=== PATIENT | female | born 1995 | race Caucasian/White ===

== ENCOUNTER 2017-12-08 09:14 | Emergency (ER) | payer BC, OTHER ==
[2017-12-08 09:35] VITALS: BP 116/82
--- NOTE | 2017-12-08 09:49 | UC ---
Throat Pain/Nasal Mathew HPI - HPI Summary HPI Summary: SORE THROAT X 2 DAYS NO FEVER, NO CHILLS, NO COUGH , + NASAL CONGESTION - History of Current Complaint Chief Complaint: UCRespiratory Stated Complaint: SORE THROAT Time Seen by Provider: 12/08/17 09:40 Hx Obtained From: Patient Hx Last Menstrual Period: 12/06/17 Onset/Duration: Gradual Onset, Lasting Days - 2, Still Present Severity: Moderate Pain Intensity: 8 Cough: None Associated Signs & Symptoms: Positive: Nasal Discharge. Negative: Drooling, Wheezing, Hoarseness, Sinus Discomfort, Fever, Vomiting, Rash - Allergies/Home Medications Allergies/Adverse Reactions: Allergies Allergy/AdvReac Type Severity Reaction Status Date / Time MS Bee Venom [Bee Venom] Allergy "skin got Verified 12/08/17 09:28 hard and red" Home Medications: Home Medications Acetaminophen TAB* [Tylenol TAB*] 650 mg PO Q4H PRN 12/08/17 [History Confirmed 12/08/17] Ibuprofen TAB* [Advil TAB*] 200 mg PO Q6H PRN 12/08/17 [History Confirmed ] PMH/Surg Hx/FS Hx/Imm Hx Previously Healthy: Yes Other History Of: Negative For: HIV, Hepatitis B, Hepatitis C, Anticoagulant Therapy - Surgical History Surgical History: None - Family History Known Family History: Positive: None Negative: Diabetes - Social History Alcohol Use: None Substance Use Type: None Smoking Status (MU): Never Smoked Tobacco Household Exposure Type: Cigarettes - Immunization History Most Recent Influenza Vaccination: July 2015 Hx Tetanus, Diphtheria Vaccination: Yes Vaccination Up to Date: Yes Review of Systems Constitutional: Negative Skin: Negative Eyes: Negative ENT: Sore Throat Respiratory: Negative Cardiovascular: Negative Gastrointestinal: Negative Is Patient Immunocompromised?: No All Other Systems Reviewed And Are Negative: Yes Physical Exam Triage Information Reviewed: Yes Appearance: Well-Appearing, No Pain Distress, Well-Nourished Vital Signs: Initial Vital Signs Temp 99.1 F 12/08/17 09:29 Pulse 93 12/08/17 09:29 Resp 20 12/08/17 09:29 BP 116/82 12/08/17 09:29 Pulse Ox 99 12/08/17 09:29 Vital Signs Reviewed: Yes Eyes: Positive: Conjunctiva Clear ENT: Positive: Normal ENT inspection, Hearing grossly normal, Pharyngeal erythema. Negative: Tonsillar swelling, Tonsillar exudate Neck exam: Normal Neck: Positive: Supple, Nontender, No Lymphadenopathy Respiratory Exam: Normal Respiratory: Positive: Chest non-tender, Lungs clear, Normal breath sounds Cardiovascular: Positive: RRR, No Murmur, Pulses Normal Skin Exam: Normal Throat Pain/Nasal Course/Dx - Differential Dx/Diagnosis Provider Diagnoses: PHARYNGITIS Discharge - Discharge Plan Condition: Stable Disposition: HOME Patient Education Materials: Pharyngitis (ED) Referrals: Non Staff,Doctor [Primary Care Provider] - If Needed
== END 2017-12-08 10:05 | disposition home or self-care (01) ==
LOC: UCCORT 09:14
DX: J02.9 Acute pharyngitis, unspecified (principal); Z91.030 Bee allergy status
CPT/HCPCS: 87651; 99211; G0463